=== PATIENT | male | born 1980 | race Caucasian/White ===

== ENCOUNTER 2016-09-13 18:35 | Emergency (ER) | payer MEDICAID ==
[2016-09-13 19:15] LABS: % IMMATURE GRANULYOCYTES 0.3 % (0.0-1.1); ABSOLUTE IMMATURE GRANULOCYTES 0.02 10^3/uL (0.00-0.10); ADD DIFF? NO; ADD MORPH? NO; ADD SCAN? NO; ATYPICAL LYMPHOCYTE FLAG 0 (0-99); FRAGMENT RBC FLAG 0 (0-99); HEMATOCRIT 37.7 % (40.0-51.0); HEMOGLOBIN 13.4 g/dL (13.7-17.5); LEFT SHIFT FLG 0 (0-99); LIPEMIA HEMOLYSIS FLAG 90 (0-99); MEAN CELL HEMOGLOBIN CONCENTR. 35.5 g/dL (32.4-36.7); MEAN CELL VOLUME 92.9 fL (81.5-99.8); MEAN PLATELET VOLUME 9.5 fL (8.7-11.7); PLATELET CLUMPS FLAG 10 (0-99); PLATELET COUNT 127 10^3/uL (150-400); RED BLOOD CELL COUNT 4.06 10^6/uL (4.40-6.38); RED CELL DISTRIBUTION WIDTH 11.7 % (11.5-15.2)
[2016-09-13 19:26] LABS: ANION GAP 7 mEq/L (8-16); CALCIUM 9.1 mg/dL (8.5-10.4); CARBON DIOXIDE 26 mEq/l (22-31); CHLORIDE 106 mEq/L (97-110); CREATININE 0.7 mg/dL (0.7-1.3); GLOMERULAR FILTRATION RATE > 60; GLUCOSE 97 mg/dL (70-100); POTASSIUM 3.3 mEq/L (3.5-5.2); SODIUM 139 mEq/L (134-144)
[2016-09-13] MEDS ORDERED: CLINDAMYCIN 900 MG/DEXTROSE 50 ML IV ONE (19:42)
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
[2016-09-13 20:10] VITALS: RESP 18
[2016-09-13 21:06] VITALS: BP 132/88; PULSE 82; TEMP 98.6; O2SAT 97
== END 2016-09-13 21:00 | disposition home or self-care (01) ==
DX: L03.114 Cellulitis of left upper limb (principal)
CPT/HCPCS: 96365

== ENCOUNTER 2016-09-14 12:04 | Inpatient (IN) | payer MEDICAID ==
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
[2016-09-14 13:23] LABS: % IMMATURE GRANULYOCYTES 0.6 % (0.0-1.1); ABSOLUTE IMMATURE GRANULOCYTES 0.03 10^3/uL (0.00-0.10); ADD DIFF? NO; ADD MORPH? NO; ADD SCAN? NO; ATYPICAL LYMPHOCYTE FLAG 20 (0-99); FRAGMENT RBC FLAG 0 (0-99); HEMATOCRIT 38.6 % (40.0-51.0); HEMOGLOBIN 13.4 g/dL (13.7-17.5); LEFT SHIFT FLG 0 (0-99); LIPEMIA HEMOLYSIS FLAG 90 (0-99); MEAN CELL HEMOGLOBIN 32.4 pg (27.9-34.1); MEAN CELL HEMOGLOBIN CONCENTR. 34.7 g/dL (32.4-36.7); MEAN CELL VOLUME 93.5 fL (81.5-99.8); MEAN PLATELET VOLUME 9.6 fL (8.7-11.7); PLATELET CLUMPS FLAG 0 (0-99); PLATELET COUNT 152 10^3/uL (150-400); RED BLOOD CELL COUNT 4.13 10^6/uL (4.40-6.38); RED CELL DISTRIBUTION WIDTH 11.9 % (11.5-15.2)
[2016-09-14 13:29] LABS: ANION GAP 16 mEq/L (8-16); CALCIUM 8.6 mg/dL (8.5-10.4); CARBON DIOXIDE 24 mEq/l (22-31); CHLORIDE 103 mEq/L (97-110); CREATININE 0.7 mg/dL (0.7-1.3); GLOMERULAR FILTRATION RATE > 60; GLUCOSE 106 mg/dL (70-100); POTASSIUM 3.2 mEq/L (3.5-5.2); SODIUM 143 mEq/L (134-144)
[2016-09-14 13:42] LABS: ETHANOL SERUM 497 mg/dL (0-10)
[2016-09-14] MEDS ORDERED: LET GEL TOPICAL 1 EA SYR TP ONE (14:05)
[2016-09-14] MEDS ORDERED: SKIN ADHESIVE (DERMABOND) 1 EACH TP ONE (14:48)
[2016-09-14 14:53] LABS: APTT 33.1 SEC (23.0-38.0); INR 1.03 (0.83-1.16); PROTIME(PATIENT) 13.4 SEC (12.0-15.0)
[2016-09-14] MEDS ORDERED: NALOXONE HCL 0.4 MG/ML INJ IVP PRN (15:09)
[2016-09-14] MEDS ORDERED: ONDANSETRON DISINTEGRATING 4 MG TAB PO PRN (15:09)
[2016-09-14] MEDS ORDERED: LR 1,000 ML IV SCH (15:30)
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
[2016-09-14] MEDS: levETIRAcetam 500 MG TAB PO SCH (20:56)
[2016-09-14] MEDS: LORazepam 1 MG TAB PO SCH (20:56)
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
[2016-09-15] MEDS: levETIRAcetam 500 MG TAB PO SCH ×2 (07:30→20:08)
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
[2016-09-15] MEDS: CLINDAMYCIN 150 MG CAP PO SCH ×3 (09:06→20:08)
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
[2016-09-15] MEDS: BEER 1 EACH EA PO SCH ×4 (10:57→20:57)
[2016-09-15] MEDS: OXYCODONE/APAP 5/325 TAB PO PRN ×2 (11:00→15:35)
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
[2016-09-15] MEDS: LORazepam 1 MG TAB PO SCH (20:07)
[2016-09-16] MEDS: BEER 1 EACH EA PO SCH (06:21)
[2016-09-16] MEDS: OXYCODONE/APAP 5/325 TAB PO PRN (06:23)
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
[2016-09-16 08:29] VITALS: BP 142/103; PULSE 74; RESP 16; TEMP 98.6; O2SAT 100
--- NOTE | 2016-09-16 09:28 | PDINTPN ---
Sheriff Progress Note Assessment/Plan: Assessment: * Status post closed head injury-subarachnoid hemorrhage * Left clavicle fracture-conservative management no surgery at this time. * Alcoholism- * Seizure disorder-on Keppra * Homeless Plan: Likely home soon Continue oral alcohol as patient does not wish to quit drinking Subjective: Resting comfortably. Pain is tolerable. Objective: Vital Signs Temp Pulse Resp BP Pulse Ox 37.0 C 74 16 142/103 H 100 09/16/16 08:00 09/16/16 08:00 09/16/16 08:00 09/16/16 08:00 09/16/16 08:00 09/15/16 09/16/16 09/17/16 05:59 05:59 05:59 Intake Total 3020 4400 Output Total 600 4470 Balance 2420 -70 PT 13.4 SEC (12.0-15.0) 09/14/16 12:04 INR 1.03 (0.83-1.16) 09/14/16 12:04 Physical Exam - Physical Exam General Appearance: alert, no apparent distress EENT: PERRL/EOMI, normal ENT inspection Neck: non-tender, full range of motion, supple Respiratory: chest non-tender, lungs clear, normal breath sounds Cardiac/Chest: normal peripheral pulses, regular rate, rhythm Peripheral Pulses: 2+: carotid (R), carotid (L), femoral (R), femoral (L), dorsalis-pedis (R), dorsalis-pedis (L) Abdomen: normal bowel sounds, non-tender, soft Male Genitalia: deferred Rectal: deferred Extremities: other (Left upper extremity sling) Neuro/Psych: no motor/sensory deficits, alert, normal mood/affect, oriented x 3 ICD10 Worksheet Patient Problems: Problems Problem Status Onset Closed left clavicular fracture Acute Laceration of left eyebrow Acute Traumatic intracranial subarachnoid hemorrhage Acute Cellulitis and abscess of leg Acute Hypoxic encephalopathy Acute Methicillin resistant Staphylococcus aureus infection Acute Trauma Acute
--- NOTE | 2016-09-16 09:48 | TRAUMAPN ---
- Problem/Surgery Performed (1) Closed left clavicular fracture Assessment/Plan: Stable. Fu with Dr. Hansen in 2 weeks Qualifiers: Encounter type: initial encounter Clavicle location: shaft Fracture alignment: displaced Fracture healing: F Qualified Code(s): S42.022A - Displaced fracture of shaft of left clavicle, initial encounter for closed fracture (2) Laceration of left eyebrow Assessment/Plan: Healing well. Since I expect that he will not return for follow up, sutures will be removed and steristrips placed Qualifiers: Encounter type: initial encounter Qualified Code(s): S01.112A - Laceration without foreign body of left eyelid and periocular area, initial encounter (3) Traumatic intracranial subarachnoid hemorrhage Assessment/Plan: Stable per neurosurgery. On Keppra Qualifiers: Encounter type: initial encounter Loss of consciousness presence/duration: L (4) Cellulitis and abscess of leg Assessment/Plan: minimal erythema, healing wound. He picked scab off yesterday. (5) Trauma Assessment/Plan: Patients wishes to go and is not interested in stopping ETOH use/abuse. Contusion over left iliac crest stable. Assessment/Plan: Stable. using sling Plan Fu with Dr. Hansen in 2 weeks. Patient will continue Keppra and will use Tylenol for pain. Wishes to be discharged Subjective: Moving bowels, c/o left clavicular pain. Objective: Vital Signs Temp Pulse Resp BP Pulse Ox 37.0 C 74 16 142/103 H 100 09/16/16 08:00 09/16/16 08:00 09/16/16 08:00 09/16/16 08:00 09/16/16 08:00 09/15/16 09/16/16 09/17/16 05:59 05:59 05:59 Intake Total 3020 4400 Output Total 600 4470 Balance 2420 -70 PT 13.4 SEC (12.0-15.0) 09/14/16 12:04 INR 1.03 (0.83-1.16) 09/14/16 12:04 Physical Exam - Physical Exam General Appearance: WD/WN, alert, mild distress (when sitting up. states pain not an issue when walking) Neck: non-tender, full range of motion, supple Respiratory: chest non-tender, lungs clear, normal breath sounds Cardiac/Chest: regular rate, rhythm Abdomen: normal bowel sounds, non-tender, soft Male Genitalia: deferred Rectal: deferred Back: Normal inspection Skin: normal color, warm/dry Extremities: normal range of motion, non-tender, normal inspection (right leg has a minimal "scratch" without cellulitis.) Neuro/Psych: alert, normal mood/affect, oriented x 3 Time Spent w/Patient (minutes): 25
[2016-09-16] MEDS: CLINDAMYCIN 150 MG CAP PO SCH (10:12)
[2016-09-16] MEDS: levETIRAcetam 500 MG TAB PO SCH (10:12)
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
== END 2016-09-16 10:39 | disposition home or self-care (01) | DRG 83 ==
LOC: EDUNIT# → F2N 15:47
PROVIDERS: ADMIT Surgery; ATTEND Surgery
PROC: 0HQ1XZZ Repair Face Skin, External Approach (ICD-10-PCS; principal; 2016-09-14)
DX: S06.6X9A Traumatic subarachnoid hemorrhage with loss of consciousness of unspecified duration, initial encounter (principal); S42.022A Displaced fracture of shaft of left clavicle, initial encounter for closed fracture; S01.112A Laceration without foreign body of left eyelid and periocular area, initial encounter; S70.02XA Contusion of left hip, initial encounter; S70.01XA Contusion of right hip, initial encounter; G40.509 Epileptic seizures related to external causes, not intractable, without status epilepticus; L03.116 Cellulitis of left lower limb; F10.229 Alcohol dependence with intoxication, unspecified; V19.9XXA Pedal cyclist (driver) (passenger) injured in unspecified traffic accident, initial encounter; Y93.55 Activity, bike riding; Y92.830 Public park as the place of occurrence of the external cause; F12.90 Cannabis use, unspecified, uncomplicated; Z98.1 Arthrodesis status; Z59.0 Homelessness; Z86.14 Personal history of Methicillin resistant Staphylococcus aureus infection; Z91.14 Patient's other noncompliance with medication regimen
CPT/HCPCS: 96365; 97116-GP; 97162-GP; 97166-GO; 97535-GO; G0480

== ENCOUNTER 2016-11-19 20:25 | Emergency (ER) | payer MEDICAID ==
[2016-11-19 20:34] VITALS: TEMP 98.1
--- NOTE | 2016-11-19 21:16 | EDPHY ---
H & P Stated Complaint: check out L shoulder prior to incarceration; 2 weeks post op HPI/ROS: CHIEF COMPLAINT: Postsurgical rash HISTORY OF PRESENT ILLNESS: The patient is a 36 y/o male with a seizure disorder arriving in [facility] custody for medical clearance. He is complaining of post-surgical left shoulder rash. He had a seizure and injured his left clavicle , which required surgical repair 2 weeks ago (surgery was performed in [place]) . He's had pain since the surgery and went to a follow up appointment yesterday with his orthopedist and had an x-ray taken, which he does not know the results of yet. He has been following up appropriately with all of his doctors following the surgery. He has a red rash around his shoulder underlying where his bandages were taped on. He is using Advil and Tylenol in addition to oxycodone for pain. He received a prescription for 28 oxycodone yesterday, 5 pills remaining in the bottle. He says the missing 23 pills are in his stomach, fell out of his pocket, or are in his backpack. He reports he is compliant with Keppra. REVIEW OF SYSTEMS: A ten point review of systems was performed and is negative with the exception of the items mentioned in the HPI. Past medical history: Seizure disorder, ETOH abuse Past surgical history: Left shoulder (clavicle) repair 2 weeks ago Family history: Noncontributory Social history: In [facility] custody, homeless. History of alcohol abuse. General Appearance: Alert. Vital signs reviewed. Blood pressure 139/108, heart rate 110 at triage. Eyes: Pupils equal and round, no conjunctival injection, no discharge. Anicteric. ENT, Mouth: Mucous membranes are moist, no oropharyngeal erythema or edema. Neck: No lymphadenopathy, supple. Respiratory: Lungs are clear to auscultation; no wheezes, rales, or rhonchi. Bruising left thorax and tenderness mid anterior thorax on the left (no crepitance). Cardiovascular: Regular rate and rhythm; no murmur, rub, or gallop. Gastrointestinal: Abdomen is soft and nontender, no masses or organomegaly, bowel sounds normal. Skin: Warm and dry, erythema scabbing and scattered papular rash to left shoulder in a distribution that likely follows the surgical bandage. Back: Nontender to palpation over the thoracolumbar spine. No CVAT. Extremities: No lower extremity edema, no calf tenderness or swelling. Neurological: Alert and oriented. Moving all four extremities easily and equally. Psychiatric: Normal affect but minimally cooperative with questioning. - Personal History Current Tetanus/Diphtheria Vaccine: No Tetanus Vaccine Date: 2012 - Medical/Surgical History Hx Asthma: No Hx Chronic Respiratory Disease: No Hx Diabetes: No Hx Cardiac Disease: No Hx Renal Disease: No Hx Cirrhosis: No Hx Alcoholism: Yes Hx HIV/AIDS: No Hx Splenectomy or Spleen Trauma: No Other PMH: PMHx: Seizures, ETOH abuse, L clavicle and rib injury. PSHx: spinal fusion, L clavicle - Social History Smoking Status: Never smoked Constitutional: Initial Vital Signs Temperature (C) 36.7 C 11/19/16 20:28 Heart Rate 110 H 11/19/16 20:28 Respiratory Rate 15 11/19/16 20:28 Blood Pressure 139/108 H 11/19/16 20:28 O2 Sat (%) 96 11/19/16 20:28 O2 Delivery Mode Room Air Allergies/Adverse Reactions: No Known Drug Allergies Allergy (Verified 09/13/16 18:39) Home Medications: Medication Instructions Recorded Clindamycin HCl [Clindamycin] 300 mg PO TID 09/14/16 Herbals/Supplements -Info Only 1 ea PO DAILY 09/14/16 Acetaminophen [Tylenol ES 500 mg 1,000 mg PO Q8 #60 tab 09/16/16 (*)] levETIRAcetam [Keppra 500 mg (*)] 1,000 mg PO BID #0 09/16/16 Medical Decision Making ED Course/Re-evaluation: Patient is unable to account for the 23 missing [place] pills. Will check LFTs, acetominophen level,saliciylate level, coags. Bloodwork all normal. It is unlikely that he took 23 [place] (7,475 mg of tylenol) in 24 hours. I think that he can safely be discharged. He is medically cleared for retirement. I believe that the rash on his left shoulder, anterior thorax is contact dermatitis from surgical dressing. He is not showing any signs of an allergic reaction/anaphylaxis. I do not suspect a problem with the surgery itself--such as plate loosening or infection. BP was high on arrival at 139/108, with BP at discharge of 176/88. He is advised to have BP checked by orthopedist or PCP within the month. Departure - Departure Disposition: Home, Routine, Self-Care Clinical Impression: Contact dermatitis Qualifiers: Contact dermatitis type: unspecified Contact dermatitis trigger: adhesive Qualified Code(s): L23.1 - Allergic contact dermatitis due to adhesives Condition: Good Instructions: Contact Dermatitis (ED), Shoulder Pain (ED) Additional Instructions: Only take your prescriptions as directed. Do not take more than 3,000mg of acetaminophen (Tylenol) in 24 hours. [place] contains acetaminophen. Follow up with your orthopedist as scheduled. Medically cleared for retirement. Referrals: [facility],. [Clinic] - As per Instructions Report Scribed for: Gaby Escamilla Report Scribed by: Rajni Guerra Date of Report: 11/19/16 Time of Report: 21:26 Physician Review and Approval Statement: 11/19/16 21:16 Portions of this note were transcribed by the medical insurance verifier. I, Dr. Gaby Escamilla, personally performed the history, physical exam, and medical decision- making; and confirmed the accuracy of the information in the transcribed note.
[2016-11-19 21:56] LABS: INR 0.98 (0.83-1.16); PROTIME(PATIENT) 12.9 SEC (12.0-15.0)
[2016-11-19 22:12] LABS: ALANINE AMINOTRANSFERASE 31 IU/L (21-72); ALBUMIN 4.3 g/dL (3.5-5.0); ALKALINE PHOSPHATASE 61 IU/L (38-126); ASPARTATE AMINOTRANSFERASE 49 IU/L (17-59); BILIRUBIN,TOTAL 0.5 mg/dL (0.1-1.4); BILIRUBIN-CONJUGATED 0.3 mg/dL (0.0-0.5); BILIRUBIN-UNCONJUGATED 0.2 mg/dL (0.0-1.1); SALICYLATE < 1.0 mg/dL (2.0-20.0); TOTAL PROTEIN 7.8 g/dL (6.3-8.2)
[2016-11-19 22:56] VITALS: BP 176/88; PULSE 79; RESP 16; O2SAT 97
== END 2016-11-19 22:56 | disposition home or self-care (01) ==
DX: L23.1 Allergic contact dermatitis due to adhesives (principal)
CPT/HCPCS: G0480

== ENCOUNTER 2017-03-30 21:58 | Emergency (ER) | payer MEDICAID ==
--- NOTE | 2017-03-30 22:02 | EDPHY ---
H & P HPI/ROS: HPI CHIEF COMPLAINT: Pruritic Rash HISTORY OF PRESENT ILLNESS: Patient is a 37-year-old male he is homeless, he presents emergency room from the [facility], for rash mainly around his waistline, on his hands back and trunk. It itches. He is brought in by EMS. He was brought to the ED con shower I evaluated him. He appears to have scabies on exam. No signs of superinfection. Past Medical History: No significant medical history Past Surgical History: Denies significant surgical history Social History: Denies daily use of drugs alcohol tobacco products. Homeless Family History: Noncontributory ROS REVIEW OF SYSTEMS: A comprehensive 10 point review of systems is otherwise negative aside from elements mentioned in the history of present illness. Exam Constitutional appears well nontoxic triage nursing summary reviewed, vital signs reviewed, awake/alert. Eyes normal conjunctivae and sclera, EOMI, PERRLA. HENT normal inspection, atraumatic, moist mucus membranes, no epistaxis, neck supple/ no meningismus, no raccoon eyes. Respiratory clear to auscultation bilaterally, normal breath sounds, no respiratory distress, no wheezing. Cardiovascular rate normal, regular rhythm, no murmur, no edema, distal pulses normal. Gastrointestinal soft, non-tender, no rebound, no guarding, normal bowel sounds, no distension, no pulsatile mass. Genitourinary no CVA tenderness. Musculoskeletal no midline vertebral tenderness, full range of motion, no calf swelling, no tenderness of extremities, no meningismus, good pulses, neurovascularly intact. Skin rash consistent with scabies. Fine macular papular rash sandpaper like around his waist, in between his digits, no signs of superinfection or cellulitis. Neurologic awake, alert and oriented x 3, AAOx3, moves all 4 extremities equally, motor intact, sensory intact, CN II-XII intact, normal cerebellar, normal vision, normal speech. Psychiatric normal mood/affect. Heme/Lymph/Immune no lymphadenopathy. Differential Diagnosis: Includes but is not limited to in a particular order scabies, Malagasy scabies, super infection, Thripts Medical Decision Making: Plan for this patient permethrin TP. Here in Er. Follow up with PCP. Source: Patient, EMS - Personal History Tetanus Vaccine Date: 2012 - Medical/Surgical History Hx Asthma: No Hx Chronic Respiratory Disease: No Hx Diabetes: No Hx Cardiac Disease: No Hx Renal Disease: No Hx Cirrhosis: No Hx Alcoholism: Yes Hx HIV/AIDS: No Hx Splenectomy or Spleen Trauma: No Other PMH: PMHx: Seizures, ETOH abuse, L clavicle and rib injury. PSHx: spinal fusion, L clavicle - Social History Smoking Status: Never smoked Allergies/Adverse Reactions: No Known Drug Allergies Allergy (Verified 09/13/16 18:39) Home Medications: Medication Instructions Recorded Clindamycin HCl [Clindamycin] 300 mg PO TID 09/14/16 Herbals/Supplements -Info Only 1 ea PO DAILY 09/14/16 Acetaminophen [Tylenol ES 500 mg 1,000 mg PO Q8 #60 tab 09/16/16 (*)] levETIRAcetam [Keppra 500 mg (*)] 1,000 mg PO BID #0 09/16/16 Departure - Departure Disposition: Home, Routine, Self-Care Clinical Impression: Scabies Condition: Good Instructions: Scabies (ED) Referrals: NONE *PRIMARY CARE P,. [Primary Care Provider] - As per Instructions
[2017-03-30] MEDS ORDERED: PERMETHRIN 5% 60 GM CREAM TP ONE (22:07)
[2017-03-30 22:12] VITALS: BP 128/100; PULSE 94; RESP 18; TEMP 98.4; O2SAT 94
== END 2017-03-30 23:04 | disposition home or self-care (01) ==
LOC: EDUNIT#
DX: B86 Scabies (principal)

== ENCOUNTER 2018-01-04 10:53 | Emergency (ER) | payer MEDICAID ==
[2018-01-04 11:00] VITALS: BP 114/73
[2018-01-04] MEDS ORDERED: NS 1,000 ML IV ONE (11:08)
--- NOTE | 2018-01-04 11:11 | EDPHY ---
H & P Stated Complaint: Seizure yesterday after N/V x 48 hr. now has sore throat Time Seen by Provider: 01/04/18 11:02 HPI/ROS: CHIEF COMPLAINT: The sore throat, seizure HISTORY OF PRESENT ILLNESS: Patient is a 37-year-old man who states that he had a stomach flu over the weekend and had trouble taking fluids in eating. He could not take his Keppra medication. He states that he was vomiting very frequently. His vomiting stopped yesterday and he was able to take his medication but now has developed a sore throat. He also had a seizure yesterday. He feels dehydrated. No fever. No new trauma. Today he is able to tolerate p.o. But states that his throat is sore hurts. He denies recent alcohol withdrawal. Severity: Moderate Modifying factors: The improving REVIEW OF SYSTEMS: Constitutional: denies: chills, fever, recent illness, recent injury EENTM: See HPI Respiratory: denies: cough, shortness of breath Cardiac: denies: chest pain, irregular heart rate, lightheadedness, palpitations Gastrointestinal/Abdominal: denies: abdominal pain, diarrhea, nausea, vomiting, blood streaked stools Genitourinary: denies: dysuria, frequency, hematuria, pain Musculoskeletal: denies: joint pain, muscle pain Skin: denies: lesions, rash, jaundice, bruising Neurological: See HPI denies: numbness, paresthesia, tingling, dizziness, weakness Hematologic/Lymphatic: denies: blood clots, easy bleeding, easy bruising Immunologic/allergic: denies: HIV/AIDS, transplant 10 systems reviewed and negative except as noted EXAM: GENERAL: Well-appearing, well-nourished and in no acute distress. HEAD: Atraumatic, normocephalic. EYES: Pupils equal round and reactive to light, extraocular movements intact, sclera anicteric, conjunctiva are normal. ENT: TMs normal, nares patent, oropharynx clear without exudates. Moist mucous membranes. NECK: Normal range of motion, supple without lymphadenopathy or JVD. LUNGS: Breath sounds clear to auscultation bilaterally and equal. No wheezes rales or rhonchi. HEART: Regular rate and rhythm without murmurs, rubs or gallops. ABDOMEN: Soft, nontender, normoactive bowel sounds. No guarding, no rebound. No masses appreciated. BACK: No CVA tenderness, no spinal tenderness, step-offs or deformities EXTREMITIES: Normal range of motion, no pitting or edema. No clubbing or cyanosis. NEUROLOGICAL: Cranial nerves II through XII grossly intact. Normal speech, normal gait. 5/5 strength, normal movement in all extremities, normal sensation , normal reflexes PSYCH: Normal mood, normal affect. SKIN: Warm, dry, normal turgor, no visible rashes or lesions. Source: Patient Exam Limitations: No limitations - Personal History Current Tetanus/Diphtheria Vaccine: Yes Current Tetanus Diphtheria and Acellular Pertussis (TDAP): Yes Tetanus Vaccine Date: 2012 - Medical/Surgical History Hx Asthma: No Hx Chronic Respiratory Disease: No Hx Diabetes: No Hx Cardiac Disease: No Hx Renal Disease: No Hx Cirrhosis: No Hx Alcoholism: Yes Hx HIV/AIDS: No Hx Splenectomy or Spleen Trauma: No Other PMH: PMHx: Seizures, ETOH abuse, L clavicle and rib injury. PSHx: spinal fusion, L clavicle - Family History Significant Family History: No pertinent family hx - Social History Smoking Status: Never smoked Alcohol Use: Sober Drug Use: None Constitutional: Initial Vital Signs Temperature (C) 36.8 C 01/04/18 10:57 Heart Rate 92 01/04/18 10:57 Respiratory Rate 16 01/04/18 10:57 Blood Pressure 114/73 01/04/18 10:57 O2 Sat (%) 97 01/04/18 10:57 O2 Delivery Mode Room Air Allergies/Adverse Reactions: No Known Drug Allergies Allergy (Verified 09/13/16 18:39) Home Medications: Medication Instructions Recorded Clindamycin HCl [Clindamycin] 300 mg PO TID 09/14/16 Herbals/Supplements -Info Only 1 ea PO DAILY 09/14/16 Acetaminophen [Tylenol ES 500 mg 1,000 mg PO Q8 #60 tab 09/16/16 (*)] levETIRAcetam [Keppra 500 mg (*)] 1,000 mg PO BID #0 09/16/16 LaMICtal 01/04/18 Vistaril 01/04/18 Medical Decision Making ED Course/Re-evaluation: The patient's GI symptoms have essentially resolved however he had a seizure yesterday because he had not taken his medication in several days. He was able to take it yesterday and today. However today's developed a sore throat and sinus congestion and chills. Normal pharynx examination. Likely has early upper respiratory tract infection. No fever. I recommended hydration and recheck his lab work. After I left the room he was angry with nursing staff that we were not going to give him antiviral medications order a brain scan. He left AMA. Differential Diagnosis: Partial list of the Differential diagnosis considered include but were not limited to; viral pharyngitis, upper respiratory tract infection, gastroenteritis, dehydration, seizure, epilepsy, alcohol withdrawal and although unlikely based on the history and physical exam, I also considered head injury, meningitis, sepsis, intracranial injury. - Data Points Medications Given: Discontinued Medications Sodium Chloride (Ns) 1,000 mls @ 0 mls/hr IV ONCE ONE; Wide Open PRN Reason: Protocol Stop: 01/04/18 11:09 Last Admin: 01/04/18 11:11 Dose: Not Given Departure - Departure Disposition: Against Medical Advice Clinical Impression: Dehydration Vomiting Qualifiers: Vomiting type: unspecified Vomiting Intractability: intractable Nausea presence : without nausea Qualified Code(s): R11.11 - Vomiting without nausea Pharyngitis Qualifiers: Pharyngitis/tonsillitis etiology: unspecified etiology Qualified Code(s): J02.9 - Acute pharyngitis, unspecified Condition: Fair Instructions: Dehydration (ED), Pharyngitis (ED) Referrals: Nickie Diaz MD [Primary Care Provider] - As per Instructions Maco Raygoza DO [Medical Doctor] - As per Instructions
== END 2018-01-04 11:10 | disposition left against medical advice (07) ==
DX: J02.9 Acute pharyngitis, unspecified (principal); E86.0 Dehydration

== ENCOUNTER → 2018-01-12 | Outpatient (CLI) | payer MEDICAID | LOC: FIMAGING 13:04 | PROVIDERS: ATTEND Psychiatry & Neurology Neurology | DX: G40.909 Epilepsy, unspecified, not intractable, without status epilepticus (principal); G31.9 Degenerative disease of nervous system, unspecified; J01.80 Other acute sinusitis; Z87.81 Personal history of (healed) traumatic fracture ==

== ENCOUNTER 2018-02-04 20:55 | Emergency (ER) | payer MEDICAID ==
[2018-02-04] MEDS ORDERED: ONDANSETRON 4 MG/2 ML VIAL ONE (21:14)
[2018-02-04] MEDS ORDERED: ONDANSETRON 4 MG/2 ML VIAL IVP ONE (21:17)
[2018-02-04] MEDS ORDERED: NS 1,000 ML IV ONE ×2 (21:17→23:32)
--- NOTE | 2018-02-04 21:18 | EDPHY ---
H & P Smoking Status: Current some day smoker Time Seen by Provider: 02/04/18 21:11 HPI/ROS: CHIEF COMPLAINT: Vomiting, dizziness HISTORY OF PRESENT ILLNESS: The patient reports that 2 days ago in the evening he was sitting around watching television and the knee stood up quickly and felt very lightheaded and had a difficult time walking and then fell to the ground. He then threw up multiple times. Denies any extremity weakness at the time or any chest pain or shortness of breath and had no head injury or loss of consciousness. States he has been the last 2 days in bed severe nausea vomiting and diarrhea. He reports small amounts of blood in the emesis also reports black appearing stools yesterday and today. He has no history of gastric ulcers or GI bleed. He does have history of seizures and does not think he had a seizure. He takes Keppra 1500 mg 3 times a day was not taking his medication in 2 days. Also takes multiple medications for anxiety and has not taken those either for 2 days. States he was able to walk from his house to take the bus here and ambulate to the emergency room. Denies any headache, fever. REVIEW OF SYSTEMS: Constitutional: No fever, no chills. Eyes: No discharge. ENT: No sore throat. Cardiovascular: No chest pain, no palpitations. Respiratory: No cough, no shortness of breath. Gastrointestinal: n abdominal pain, + vomiting. Genitourinary: No hematuria. Musculoskeletal: No back pain. Skin: No rashes. Neurological: No headache. (Maco Cordero) Physical Exam: General Appearance: Alert and no distress. ENT: normal dentition. No tonsillar exudate or swelling. Eyes: Pupils equal and round no injection. Extraocular muscles intact with no nystagmus Respiratory: Chest is nontender, lungs are clear to auscultation. Cardiac: regular rate and rhythm. No lower extremity edema Gastrointestinal: Abdomen is soft and nontender, no masses, bowel sounds normal. Rectal exam reveals normal colored stool with no lauryn blood Musculoskeletal: Neck is supple and nontender. Extremities have full range of motion and are nontender without deformity Skin: No rashes or lesions. Neuro: Cranial nerves grossly intact. No nystagmus. Normal maqduo-hb-cham testing. Equal grasp. Ambulatory. (Maco Cordero) Constitutional: Initial Vital Signs Temperature (C) 36.8 C 12/20/18 20:56 Heart Rate 126 H 02/04/18 20:56 Respiratory Rate 18 02/04/18 20:56 Blood Pressure 125/104 H 02/04/18 20:56 O2 Sat (%) 95 02/04/18 20:56 O2 Delivery Mode Room Air Allergies/Adverse Reactions: No Known Drug Allergies Allergy (Verified 02/04/18 21:02) Home Medications: Medication Instructions Recorded levETIRAcetam [Keppra 500 mg (*)] 1,000 mg PO BID #0 09/16/16 Esomeprazole Magnesium 02/04/18 Gabapentin 02/04/18 Hydroxyzine HCl 02/04/18 Lamotrigine 02/04/18 Medical Decision Making ED Course/Re-evaluation: ED PA DICTATION I evaluated and participated in the management of the patient. I also evaluated the patient independently. My co-signature indicates that I have reviewed this chart and I agree with the findings and plan of care as documented. My personal H&P findings include: 37-year-old male presents with nausea, vomiting, abdominal pain with reported hematemesis. Here, he is tachycardic, abdominal exam is benign, rectal exam done by PA demonstrates no dark or bloody stool. He does have a fine hand tremor and a tongue lag. Labs showing transaminitis, elevated lipase, anion gap acidosis. Presentation seem somewhat consistent with alcoholic ketoacidosis and mild alcohol withdrawal. However, patient denies daily alcohol use and says he just had 2 beers over the weekend. I am not sure if he is being truthful. He was given a 2 L fluid bolus here and Ativan. His symptoms completely resolved he had no ongoing vomiting here. We rechecked his chemistries and his anion gap had completely resolved. He was able to take fluids without difficulty. He will be discharged home with instructions to follow up with primary care as well as Gastroenterology. (Emily Saeed) I did not see this patient while he was in the emergency department. However his care was discussed with the PA while the patient was in the department. I agree with treatment plan and management (Wojciech Ortiz) 37-year-old male here with multiple complaints including dizziness, nausea, vomiting, hematemesis, tarry stools. He is hemodynamically stable but does have a tremor suggestive of alcohol withdrawals. Tremors did appear somewhat with initial dose of IV Ativan and he does feel improved after Zofran and IV fluids and is tolerating p.o.. Hemoccult testing reveals no blood. Metabolic panel shows he is acidotic and dehydrated with CO2 of 18 and a BUN of 30. He was able to tolerate his 1500 mg of Keppra this evening orally. Patient is signed out to Dr. Montgomery at the end of my shift pending repeat metabolic panel and reassessment. (Maco Cordero) Differential Diagnosis: Seizure, alcohol withdrawals, anxiety, dehydration, cardiac arrhythmia, CVA, ACS , psychosis, polysubstance abuse (Maco Cordero) - Data Points Laboratory Results: Laboratory Results 02/04/18 21:25 02/05/18 00:30 Medications Given: Discontinued Medications Sodium Chloride (Ns) 1,000 mls @ 0 mls/hr IV EDNOW ONE; Wide Open PRN Reason: Protocol Stop: 02/04/18 21:18 Last Admin: 02/04/18 21:36 Dose: 1,000 mls Sodium Chloride (Ns) 1,000 mls @ 0 mls/hr IV EDNOW ONE; Wide Open PRN Reason: Protocol Stop: 02/04/18 23:33 Last Admin: 02/04/18 23:38 Dose: 1,000 mls Lorazepam (Ativan Injection) 1 mg IVP ONCE ONE Stop: 02/04/18 21:39 Last Admin: 02/04/18 21:45 Dose: 1 mg Lorazepam (Ativan Injection) 1 mg IVP EDNOW ONE Stop: 02/05/18 00:10 Last Admin: 02/05/18 00:25 Dose: 1 mg Ondansetron HCl (Zofran) 4 mg IVP ONCE ONE Stop: 02/04/18 21:18 Last Admin: 02/04/18 21:37 Dose: 4 mg Ondansetron HCl (Zofran Odt 4 Mg Prepack#2) 1 btl TAKEHOME EDNOW ONE Stop: 02/05/18 01:42 Last Admin: 02/05/18 01:44 Dose: 1 btl Point of Care Test Results: Chemistry 02/04/18 22:12 POC Troponin I 0.02 ng/mL ng/mL (0.00-0.08) Departure - Departure Disposition: Home, Routine, Self-Care Clinical Impression: Vomiting, Abdominal pain Condition: Good Instructions: Ondansetron (By mouth), Acute Nausea and Vomiting (ED) Additional Instructions: Please avoid drinking alcohol. Please make sure to drink plenty of clear fluids. Please follow-up with the purchasing buyer. Return to the ER if worse in any way. Referrals: [facility],. [Clinic] - As per Instructions
[2018-02-04] MEDS ORDERED: LORazepam 2 MG/ML INJ IVP ONE (21:38)
[2018-02-04 23:18] LABS: PLATELET COUNT 152 10^3/uL (150-400)
[2018-02-05] MEDS ORDERED: LORazepam 2 MG/ML INJ IVP ONE (00:09)
[2018-02-05] MEDS ORDERED: ONDANSETRON 4MG PREPACK#2 BTL TAKEHOME ONE (01:41)
[2018-02-05 01:46] VITALS: BP 116/88
== END 2018-02-05 01:46 | disposition home or self-care (01) ==
DX: R11.2 Nausea with vomiting, unspecified (principal); R10.9 Unspecified abdominal pain; F41.9 Anxiety disorder, unspecified
CPT/HCPCS: 80305; 84484-ER; 96374; G0480; J2060; J2405

== ENCOUNTER 2018-06-03 07:37 | Emergency (ER) | payer MEDICAID ==
[2018-06-03] MEDS ORDERED: NS 1,000 ML IV ONE (07:55)
[2018-06-03] MEDS ORDERED: LORazepam 2 MG/ML INJ IVP ONE (08:03)
--- NOTE | 2018-06-03 08:06 | EDPHY ---
H & P Stated Complaint: N/V/D since thursday Time Seen by Provider: 06/03/18 07:54 HPI/ROS: CHIEF COMPLAINT: Persistent vomiting HISTORY OF PRESENT ILLNESS: 38-year-old male with alcoholism and seizure disorder presents with persistent vomiting. Onset of vomiting 3 days ago, unable to tolerate oral fluids or food since then. Associated with generalized moderate abdominal pain. Similar to prior episode January 2018. Last alcoholic beverage was 4 days ago. Does not feel tremulous and does not feel he is going through alcohol withdrawal. History of daily marijuana use. No fever, urinary symptoms or diarrhea. REVIEW OF SYSTEMS: complete 10 point ROS reviewed and is negative except for the noted elements in the HPI Source: Patient - Personal History Current Tetanus/Diphtheria Vaccine: Yes Tetanus Vaccine Date: 2012 - Medical/Surgical History Hx Asthma: No Hx Chronic Respiratory Disease: No Hx Diabetes: No Hx Cardiac Disease: No Hx Renal Disease: No Hx Cirrhosis: No Hx Alcoholism: Yes Hx HIV/AIDS: No Hx Splenectomy or Spleen Trauma: No Other PMH: PMHx: Seizures, ETOH abuse, L clavicle and rib injury. PSHx: spinal fusion, L clavicle - Family History Significant Family History: No pertinent family hx - Social History Smoking Status: Current some day smoker Alcohol Use: Heavy Drug Use: Marijuana - Physical Exam Exam: General Appearance: Alert, pleasant Eyes: Pupils equal and round, no conjunctival pallor ENT, Mouth: Mucous membranes dry Neck: Normal inspection Respiratory: Lungs are clear to auscultation Cardiovascular: Regular rate and rhythm Gastrointestinal: Abdomen is soft, mild diffuse tenderness Neurological: A&O, nonfocal, normal gait Skin: Warm and dry Extremities: Normal inspection Psychiatric: Anxious Constitutional: Initial Vital Signs Temperature (C) 36.5 C 06/03/18 07:42 Heart Rate 73 06/03/18 07:42 Respiratory Rate 25 H 06/03/18 07:42 Blood Pressure 144/101 H 06/03/18 07:42 O2 Sat (%) 98 06/03/18 07:42 O2 Delivery Mode Room Air Allergies/Adverse Reactions: No Known Drug Allergies Allergy (Verified 06/03/18 07:44) Home Medications: Medication Instructions Recorded levETIRAcetam [Keppra 500 mg (*)] 1,000 mg PO BID #0 09/16/16 Esomeprazole Magnesium 02/04/18 Gabapentin 02/04/18 Hydroxyzine HCl 02/04/18 Lamotrigine 02/04/18 Ondansetron Odt [Zofran Odt 4 mg 4 mg PO Q4 PRN #6 tab 06/03/18 (*)] Medical Decision Making ED Course/Re-evaluation: Assessment: Persistent vomiting, concerning for cyclic vomiting syndrome versus alcohol withdrawal. IV normal saline 1 L and Ativan 1 mg IV given. The patient feels better after IV Ativan and is less anxious, continues to have some nausea. Haldol 2.5 mg IV given. Persistent nausea after Haldol. Reglan and Benadryl IV given with relief. Trial of ice chips given and pt tolerated well. Abdominal exam is soft and NT on discharge. d/w pt possibility of CVS, encouraged to d/c THC. Pt to f/u PCP, plan for GI eval as outpt. Differential Diagnosis: Differential diagnosis includes though it is not limited to appendicitis, cholecystitis, diverticulitis, pyelonephritis, bowel perforation, small bowel obstruction. - Data Points Laboratory Results: Laboratory Results 06/03/18 07:45 06/03/18 07:45 06/03/18 06/03/18 07:45 07:45 WBC 6.82 10^3/uL 10^3/uL (3.80-9.50) RBC 5.37 10^6/uL 10^6/uL (4.40-6.38) Hgb 16.6 g/dL g/dL (13.7-17.5) Hct 48.9 % % (40.0-51.0) MCV 91.1 fL fL (81.5-99.8) MCH 30.9 pg pg (27.9-34.1) MCHC 33.9 g/dL g/dL (32.4-36.7) RDW 12.4 % % (11.5-15.2) Plt Count 124 10^3/uL L 10^3/uL (150-400) MPV 10.7 fL fL (8.7-11.7) Neut % (Auto) 84.3 % H % (39.3-74.2) Lymph % (Auto) 9.1 % L % (15.0-45.0) [place] % (Auto) 6.2 % % (4.5-13.0) Eos % (Auto) 0.0 % L % (0.6-7.6) Baso % (Auto) 0.1 % L % (0.3-1.7) Nucleat RBC Rel Count 0.0 % % (0.0-0.2) Absolute Neuts (auto) 5.75 10^3/uL 10^3/uL (1.70-6.50) Absolute Lymphs (auto) 0.62 10^3/uL L 10^3/uL (1.00-3.00) Absolute Monos (auto) 0.42 10^3/uL 10^3/uL (0.30-0.80) Absolute Eos (auto) 0.00 10^3/uL L 10^3/uL (0.03-0.40) Absolute Basos (auto) 0.01 10^3/uL L 10^3/uL (0.02-0.10) Absolute Nucleated RBC 0.00 10^3/uL 10^3/uL (0-0.01) Immature Gran % 0.3 % % (0.0-1.1) Immature Gran # 0.02 10^3/uL 10^3/uL (0.00-0.10) Sodium 140 mEq/L mEq/L (135-145) Potassium 4.6 mEq/L mEq/L (3.5-5.2) Chloride 97 mEq/L mEq/L (97-110) Carbon Dioxide 16 mEq/l L mEq/l (22-31) Anion Gap 27 mEq/L H mEq/L (6-14) BUN 12 mg/dL mg/dL (7-23) Creatinine 0.9 mg/dL mg/dL (0.7-1.3) Estimated GFR > 60 Glucose 139 mg/dL H mg/dL (70-100) Calcium 9.9 mg/dL mg/dL (8.5-10.4) Total Bilirubin 1.4 mg/dL mg/dL (0.1-1.4) Conjugated Bilirubin 0.5 mg/dL mg/dL (0.0-0.5) Unconjugated Bilirubin 0.9 mg/dL mg/dL (0.0-1.1) AST 92 IU/L H IU/L (17-59) ALT 66 IU/L IU/L (21-72) Alkaline Phosphatase 91 IU/L IU/L (38-126) Total Protein 9.1 g/dL H g/dL (6.3-8.2) Albumin 5.6 g/dL H g/dL (3.5-5.0) Lipase 141 IU/L IU/L (23-300) Ethyl Alcohol < 10 mg/dL mg/dL (0-10) Medications Given: Discontinued Medications Diphenhydramine HCl (Benadryl Injection) 25 mg IVP EDNOW ONE Stop: 06/03/18 10:46 Last Admin: 06/03/18 11:54 Dose: 25 mg Haloperidol Lactate (Haldol Injection) 2.5 mg IVP EDNOW ONE Stop: 06/03/18 09:44 Last Admin: 06/03/18 09:52 Dose: 2.5 mg Sodium Chloride (Ns) 1,000 mls @ 0 mls/hr IV EDNOW ONE; Wide Open PRN Reason: Protocol Stop: 06/03/18 07:56 Last Admin: 06/03/18 08:14 Dose: 1,000 mls Lorazepam (Ativan Injection) 1 mg IVP EDNOW ONE Stop: 06/03/18 08:04 Last Admin: 06/03/18 08:15 Dose: 1 mg Metoclopramide HCl (Reglan Injection) 10 mg IVP EDNOW ONE Stop: 06/03/18 10:46 Last Admin: 06/03/18 11:54 Dose: 10 mg Ondansetron HCl (Zofran) 4 mg IVP EDNOW ONE Stop: 06/03/18 08:36 Last Admin: 06/03/18 08:36 Dose: 4 mg Departure - Departure Disposition: Home, Routine, Self-Care Clinical Impression: Vomiting Qualifiers: Vomiting type: unspecified Vomiting Intractability: non-intractable Nausea presence: with nausea Qualified Code(s): R11.2 - Nausea with vomiting, unspecified Abdominal pain Qualifiers: Abdominal location: generalized Qualified Code(s): R10.84 - Generalized abdominal pain Condition: Good Instructions: Acute Nausea and Vomiting (ED), Abdominal Pain (ED) Additional Instructions: 1. Clear liquids for 24 hours. 2. Advance diet as tolerated. I suggest the BRAT diet to start: bananas, rice, applesauce and toast. 3. Return for worsening symptoms, persistent vomiting, abdominal pain, any concerns. Referrals: John Augustine MD [Medical Doctor] - As per Instructions (Call to make an appointment. ) Prescriptions: Ondansetron Odt [Zofran Odt 4 mg (*)] 4 mg PO Q4 PRN #6 tab PRN Reason: Nausea
[2018-06-03] MEDS ORDERED: ONDANSETRON 4 MG/2 ML VIAL ONE (08:18)
[2018-06-03] MEDS ORDERED: ONDANSETRON 4 MG/2 ML VIAL IVP ONE (08:35)
[2018-06-03 09:24] LABS: PLATELET COUNT 124 10^3/uL (150-400)
[2018-06-03] MEDS ORDERED: HALOPERIDOL LACT 5 MG/ML INJ IVP ONE (09:43)
[2018-06-03] MEDS ORDERED: METOCLOPRAMIDE 10 MG/2 ML VIAL IVP ONE (10:45)
[2018-06-03 13:32] VITALS: BP 138/81
== END 2018-06-03 13:31 | disposition home or self-care (01) ==
LOC: EDUNIT#
DX: R11.10 Vomiting, unspecified (principal); R10.84 Generalized abdominal pain; E86.9 Volume depletion, unspecified
CPT/HCPCS: 96374; G0480; J1200; J1630; J2060; J2405; J2765

== ENCOUNTER 2018-08-07 22:00 | Inpatient (IN) | payer MEDICAID | END 2018-08-10 15:42 | disposition home or self-care (01) | LOC: F3E 08-09 14:43 → F3N 08-08 04:47 → F2N 08-08 09:28 ==